=== PATIENT | female | born 1945 | race Caucasian/White ===

== ENCOUNTER → 2018-06-19 | Outpatient (CLI) | payer MEDICARE, OTHER ==
[~2018-06-19] MED LIST: AMIO200T PO; AMIO200T42 PO; AMLO5TAB2 PO; APIX5TAB PO; ASPI325T17 PO; CARV12.543 PO; CARV3.1212 PO; CARV6.252 PO; CLOP75TA PO; CLOP75TA52 PO; DOCU-131 PO; FURO-92 PO; FURO40TA6 PO; HYDR-3307 PO; LEVO50TA5 PO; LEVO75TA5 PO; LISI-170 PO; LISI-463 PO; LISI1TAB7 PO; LOVA20TA2 PO; MEGA RED KRILL PO; OMEG500C3 PO; POTA20TA14 PO; Will bring list DOP
== END | disposition home or self-care (01) ==
LOC: CFH 12:27
PROVIDERS: ATTEND Internal Medicine Cardiovascular Disease
DX: I34.0 Nonrheumatic mitral (valve) insufficiency (principal); I42.0 Dilated cardiomyopathy; I11.0 Hypertensive heart disease with heart failure; I50.9 Heart failure, unspecified; Z85.3 Personal history of malignant neoplasm of breast; Z87.891 Personal history of nicotine dependence
CPT/HCPCS: 93306

== ENCOUNTER → 2019-04-25 | Outpatient (CLI) | payer MEDICARE, OTHER ==
[~2019-04-25] MED LIST changes: +AMLO-150 PO; -AMLO5TAB2 PO
== END | disposition home or self-care (01) ==
LOC: CFH 06:48
PROVIDERS: ATTEND Internal Medicine Cardiovascular Disease
DX: I08.8 Other rheumatic multiple valve diseases (principal); I10 Essential (primary) hypertension
CPT/HCPCS: 93306

== ENCOUNTER 2019-05-15 06:02 | Day surgery (SDC) | payer MEDICARE, OTHER ==
[~2019-05-15] VITALS: Ht 167.6 cm; Wt 86.3 kg
[2019-05-15 06:53] VITALS: BP 118/62
[2019-05-15] MEDS ORDERED: SODIUM CHLORIDE 0.9% 1,000 ML IV ONE (07:00)
[2019-05-15] MEDS ORDERED: METF500T17 PO (07:09)
[2019-05-15] MEDS ORDERED: POTA20TA6 PO (07:09)
[2019-05-15] MEDS ORDERED: CALC-55 PO (07:09)
[2019-05-15] MEDS ORDERED: CHOL20002 PO (07:09)
[2019-05-15] MEDS ORDERED: PROPOFOL 10 MG/ML, 20ML ONE (07:28)
== END 2019-05-15 09:52 | disposition home or self-care (01) ==
LOC: OUT 06:02
PROVIDERS: ATTEND Internal Medicine Cardiovascular Disease
DX: I08.1 Rheumatic disorders of both mitral and tricuspid valves (principal); I48.0 Paroxysmal atrial fibrillation; I10 Essential (primary) hypertension; E11.9 Type 2 diabetes mellitus without complications; E78.2 Mixed hyperlipidemia; I27.20 Pulmonary hypertension, unspecified; Z79.84 Long term (current) use of oral hypoglycemic drugs; Z87.891 Personal history of nicotine dependence
CPT/HCPCS: 93312; 93321; 93325; J2704

== ENCOUNTER 2019-05-31 08:31 | Outpatient (CLI) | payer MEDICARE, OTHER ==
[~2019-05-31 08:31] MED LIST changes: +CALC-55 PO; +CHOL20002 PO; -HYDR-3307 PO; +HYDR-36 PO; +LISI1TAB20 PO; -LISI1TAB7 PO; +METF500T17 PO; +POTA20TA6 PO
== END 2019-05-31 23:59 | disposition home or self-care (01) ==
LOC: CFH 08:31
PROVIDERS: ATTEND Internal Medicine Cardiovascular Disease
DX: I27.20 Pulmonary hypertension, unspecified (principal); R60.9 Edema, unspecified; I50.9 Heart failure, unspecified
CPT/HCPCS: 36415; 83880

== ENCOUNTER 2020-06-17 11:29 | Day surgery (SDC) | payer MEDICARE, OTHER ==
[~2020-06-17] VITALS: Ht 167.6 cm; Wt 85.5 kg
[~2020-06-17 11:29] MED LIST changes: +HYDR-3246 PO; -HYDR-36 PO
[2020-06-17 12:13] VITALS: BP 131/54
[2020-06-17] MEDS ORDERED: [UNRECOGNIZED DRUG - CODE] PO (12:28)
[2020-06-17] MEDS ORDERED: DIPHENHYDRAMINE 50 MG/ML, 1ML ONE (12:30)
[2020-06-17] MEDS ORDERED: DIPHENHYDRAMINE 50 MG/ML, 1ML IVPush ONE (12:30)
[2020-06-17 12:58] LABS: BASOPHILS # (AUTO) 0.03 x10^3/uL (0-0.1); BASOPHILS % (AUTO) 1 % (0-1); EOSINOPHILS # (AUTO) 0.14 x10^3/uL (0-0.4); EOSINOPHILS % (AUTO) 2 % (1-7); LYMPHOCYTES # (AUTO) 1.63 x10^3/uL (1-3.4); LYMPHOCYTES % (AUTO) 23 % (22-44); MD NO; MEAN CORPUSCULAR HEMOGLOBIN 30.7 pg (27.0-34.8); MEAN CORPUSCULAR HGB CONC 33.1 g/dL (32.4-35.8); MEAN CORPUSCULAR VOLUME 92.8 fL (80-100); MEAN PLATELET VOLUME 7.6 fL (7.4-10.4); MONOCYTES # (AUTO) 0.56 x10^3/uL (0.2-0.8); MONOCYTES % (AUTO) 8 % (2-9); NEUTROPHILS # (AUTO) 4.62 x10^3/uL (1.8-6.8); NEUTROPHILS % (AUTO) 66 % (42-75); PLATELET COUNT 251 x10^3/uL (130-400); RED BLOOD COUNT 4.27 x10^6/uL (3.82-5.3); RED CELL DISTRIBUTION WIDTH 16.5 % (9.6-15.2)
[2020-06-17 13:03] LABS: ANION GAP 6 mmol/L (5-15); CALCIUM 9.1 mg/dL (8.5-10.1); CHLORIDE 106 mmol/L (98-107)
[2020-06-17 13:10] LABS: CREATININE 0.88 mg/dL (0.55-1.02)
[2020-06-17 13:24] LABS: INTERNATIONAL NORMALIZED RATIO 0.98 (0.93-1.1); PROTHROMBIN TIME 10.1 Seconds (9.6-11.5)
[2020-06-17] MEDS ORDERED: FENTANYL PF 100 MCG/2ML ONE (15:11)
[2020-06-17] MEDS ORDERED: MIDAZOLAM 1 MG/ML, 5ML ONE (15:11)
[2020-06-17] MEDS ORDERED: LIDOCAINE 1%, 20ML ONE (15:44)
[2020-06-17] MEDS ORDERED: SPIR50TA PO (17:44)
== END 2020-06-17 20:06 | disposition home or self-care (01) ==
LOC: CACL 11:29 → 5SO 16:38 → CACL 20:06
PROVIDERS: ATTEND Internal Medicine Cardiovascular Disease
DX: R06.02 Shortness of breath (principal); I27.22 Pulmonary hypertension due to left heart disease; I48.0 Paroxysmal atrial fibrillation; J44.9 Chronic obstructive pulmonary disease, unspecified; J84.10 Pulmonary fibrosis, unspecified; E11.9 Type 2 diabetes mellitus without complications; G47.30 Sleep apnea, unspecified; E66.3 Overweight; Z68.30 Body mass index [BMI] 30.0-30.9, adult; Z79.01 Long term (current) use of anticoagulants; Z79.890 Hormone replacement therapy; Z79.84 Long term (current) use of oral hypoglycemic drugs; Z79.899 Other long term (current) drug therapy; Z87.891 Personal history of nicotine dependence; Z95.2 Presence of prosthetic heart valve
CPT/HCPCS: 36415; 80048; 83880; 85025; 85610; 85730; 93451; 99156; 99157; C1769; C1894; J1200; J2250; J3010; G0378

== ENCOUNTER 2020-12-21 09:19 | Emergency (ER) | payer MEDICARE, OTHER ==
[~2020-12-21] VITALS: Ht 167.6 cm; Wt 81.0 kg
[~2020-12-21 09:19] MED LIST changes: -HYDR-3246 PO; +HYDR-3248 PO; +OMEP-110 PO; +SPIR50TA PO; +[UNRECOGNIZED DRUG - CODE] PO
--- NOTE | 2020-12-21 09:40 | NUR ---
R ARMPIT PAIN FOR 2 HOURS. NO TRAUMA. CONSTANT PAIN. HX LYMPHDEMA TO R ARM. DENIES NUMBNESS OR TINGLING.
--- NOTE | 2020-12-21 09:50 | NUR ---
placed on radiation monitor hot pack applied
[2020-12-21] MEDS ORDERED: HYDROcodone/APAP 5/325 TABLET ONE (09:55)
--- NOTE | 2020-12-21 09:58 | NUR ---
medicated per [facility] at bedside
[2020-12-21] MEDS ORDERED: HYDROcodone/APAP 5/325 TABLET PO ONE (10:00)
[2020-12-21 10:13] LABS: BASOPHILS % (AUTO) 1 % (0-1); EOSINOPHILS % (AUTO) 2 % (1-7); LYMPHOCYTES % (AUTO) 19 % (22-44); MEAN CORPUSCULAR HEMOGLOBIN 32.5 pg (27.0-34.8); MEAN PLATELET VOLUME 7.5 fL (7.4-10.4); MONOCYTES % (AUTO) 10 % (2-9); NEUTROPHILS % (AUTO) 68 % (42-75); PLATELET COUNT 261 x10^3/uL (130-400); RED BLOOD COUNT 4.26 x10^6/uL (3.82-5.3); RED CELL DISTRIBUTION WIDTH 14.5 % (9.6-15.2)
[2020-12-21 10:14] LABS: MD NO
[2020-12-21 10:22] LABS: ALBUMIN 3.8 g/dL (3.4-5.0); ANION GAP 7 mmol/L (5-15); CALCIUM 9.7 mg/dL (8.5-10.1); CHLORIDE 104 mmol/L (98-107); CREATININE 1.32 mg/dL (0.55-1.02)
--- NOTE | 2020-12-21 10:25 | NUR ---
Ultrasound at bedside
--- NOTE | 2020-12-21 10:40 | NUR ---
Ct to bedside. However, ultrasound in process. will get CT once Us complete
--- NOTE | 2020-12-21 10:57 | NUR ---
us complete Pain improved from 78./10 to 6./[address] called as patient ready for exam
--- NOTE | 2020-12-21 11:49 | NUR ---
CT CALLED TO EXPEDITE
[2020-12-21] MEDS ORDERED: OMNIPAQUE 350 MG/ML, 75ML BOTTLE ONE (12:21)
[2020-12-21 14:09] VITALS: BP 109/53
== END 2020-12-21 14:11 | disposition home or self-care (01) ==
LOC: ED 10:20
DX: M25.511 Pain in right shoulder (principal); R05 Cough; I11.0 Hypertensive heart disease with heart failure; I50.9 Heart failure, unspecified; E11.9 Type 2 diabetes mellitus without complications; I48.91 Unspecified atrial fibrillation; Z85.3 Personal history of malignant neoplasm of breast
CPT/HCPCS: 36415; 71275; 80048; 82040; 85025; 93971; 99285; Q9967

== ENCOUNTER 2021-01-14 07:08 | Outpatient (CLI) | payer MEDICARE | END 2021-01-14 23:59 | disposition home or self-care (01) | LOC: CVU 07:08 | PROVIDERS: ATTEND Internal Medicine Cardiovascular Disease | DX: I08.0 Rheumatic disorders of both mitral and aortic valves (principal); I42.0 Dilated cardiomyopathy; I48.91 Unspecified atrial fibrillation; Z85.3 Personal history of malignant neoplasm of breast; Z95.2 Presence of prosthetic heart valve | CPT/HCPCS: 93306; 93356 ==